=== PATIENT | male | born 1975 | race African-American/Black ===

== ENCOUNTER 2017-10-01 12:03 | Emergency (ER) | payer MEDICAID ==
[~2017-10-01] VITALS: Ht 175.3 cm; Wt 96.6 kg
[2017-10-01 12:25] VITALS: BP 113/84
--- NOTE | 2017-10-01 12:29 | NUR ---
PT AMBULATES TO BED 6
--- NOTE | 2017-10-01 12:40 | NUR ---
PATIENT PRESENTS TO ED WITH RASH AND PRURITUS . PT STATES . DENIES N/V/D; SKIN IS PINK/WARM/DRY; AAOX4 WITH EVEN AND STEADY GAIT; LUNGS CLEAR BL; HR EVEN AND REGULAR; PT DENIES ANY FEVER, CP, SOB, OR COUGH AT THIS TIME; PATIENT STATES PAIN OF 0/10 AT THIS TIME; VSS; PATIENT POSITIONED FOR COMFORT; HOB ELEVATED; BEDRAILS UP X2; BED DOWN. ER MD MADE AWARE OF PT STATUS.
[2017-10-01] MEDS ORDERED: diphenhydrAMINE 50 MG/ML VIAL IM ONE (12:55)
[2017-10-01] MEDS ORDERED: DEXAMETHASONE 10 MG/ML VIAL IM ONE (12:55)
--- NOTE | 2017-10-01 13:41 | NUR ---
Patient discharged with v/s stable. Written and verbal after care instructions given and explained. Patient alert, oriented and verbalized understanding of instructions. Ambulatory with steady gait. All questions addressed prior to discharge. ID band removed. Patient advised to follow up with PMD. Rx of ATARAX AND PREDNISONE given. Patient educated on indication of medication including possible reaction and side effects. Opportunity to ask questions provided and answered.
[2017-10-01 13:43] VITALS: BP 110/80
== END 2017-10-01 13:41 | disposition home or self-care (01) ==
LOC: MED 12:03
DX: S60.562A Insect bite (nonvenomous) of left hand, initial encounter (principal); S40.261A Insect bite (nonvenomous) of right shoulder, initial encounter; S30.861A Insect bite (nonvenomous) of abdominal wall, initial encounter; S10.96XA Insect bite of unspecified part of neck, initial encounter; S00.462A Insect bite (nonvenomous) of left ear, initial encounter; T78.40XA Allergy, unspecified, initial encounter; L50.9 Urticaria, unspecified; W57.XXXA Bitten or stung by nonvenomous insect and other nonvenomous arthropods, initial encounter; Y93.89 Activity, other specified; Y92.89 Other specified places as the place of occurrence of the external cause; Y99.8 Other external cause status
CPT/HCPCS: 96372; 99284; J1100; J1200

== ENCOUNTER 2018-07-05 13:14 | Emergency (ER) | payer MEDICAID ==
[~2018-07-05] VITALS: Ht 175.3 cm; Wt 107.2 kg
[2018-07-05 13:16] VITALS: BP 147/90
--- NOTE | 2018-07-05 13:23 | NUR ---
PT AMB TO BED 8
--- NOTE | 2018-07-05 13:37 | NUR ---
PATIENT PRESENTS TO ED WITH C/O PRODUCTIVE COUGH AND SORE THROAT FOR APPROX 3 WEEKS. PT DENIES NAUSEA, VOMITING AND FEVERS. LUNGS CLEAR BL. PATIENT STATES THROAT PAIN OF 10/10 AT THIS TIME THAT GETS WORSE WHEN COUGHING. VSS. PATIENT POSITIONED FOR COMFORT. HOB ELEVATED, BEDRAIL UP X1. BED DOWN. PENDING ERMD EVALUATION.
--- NOTE | 2018-07-05 14:00 | NUR ---
PT TRANSPORTED TO RADIOLOGY VIA WHEELCHAIL.
--- NOTE | 2018-07-05 14:08 | NUR ---
PT IS BACK FROM RADIOLOGY. BEING EVALUATED BY DR. WAGNER AT BEDSIDE.
[2018-07-05 15:17] VITALS: BP 138/82
--- NOTE | 2018-07-05 15:17 | NUR ---
Patient discharged with v/s stable. Written and verbal after care instructions given and explained. Patient alert, oriented and verbalized understanding of instructions. Ambulatory with steady gait. All questions addressed prior to discharge. ID band removed. Patient advised to follow up with PMD. Rx of ZITHROMAX 250MG given. Patient educated on indication of medication including possible reaction and side effects. Opportunity to ask questions provided and answered.
== END 2018-07-05 15:17 | disposition home or self-care (01) ==
LOC: MED 13:14
DX: R05 Cough (principal); R06.02 Shortness of breath; R07.0 Pain in throat; R61 Generalized hyperhidrosis; Z88.5 Allergy status to narcotic agent
CPT/HCPCS: 71046; 99283

== ENCOUNTER 2018-08-04 15:42 | Emergency (ER) | payer MEDICAID ==
[~2018-08-04] VITALS: Ht 175.3 cm; Wt 106.8 kg
--- NOTE | 2018-08-04 15:45 | NUR ---
PATIENT AMBULATED TO BED 11
[2018-08-04 15:46] VITALS: BP 143/94
--- NOTE | 2018-08-04 15:46 | NUR ---
BIB SELF. AAO X4 C/O RT ANKLE AND LT KNEE PAIN X1 DAY. PT REPORTS TWISTING RT ANKLE AND FALLING LANDING ON LT KNEE. PAIN AT 8/10 THAT INCREASES WITH WALKING. PT TREATED WITH NORCO WITH SOME RELIEF. + CMS TO HILDA LEGS, STEADY GAIT. -DEFORMITY, -SWELLING NOTED. ER TO EVALUATE PT.
--- NOTE | 2018-08-04 15:58 | NUR ---
DR SPENCER AT BEDSIDE FOR PT EVALUATION
[2018-08-04] MEDS ORDERED: IBUPROFEN 800 MG TAB PO ONE (16:00)
--- NOTE | 2018-08-04 16:09 | NUR ---
RADIOLOGY AT BEDSIDE.
[2018-08-04 17:03] VITALS: BP 139/88
== END 2018-08-04 17:03 | disposition home or self-care (01) ==
LOC: MED 15:42
DX: S93.401A Sprain of unspecified ligament of right ankle, initial encounter (principal); S80.02XA Contusion of left knee, initial encounter; Z88.6 Allergy status to analgesic agent; W19.XXXA Unspecified fall, initial encounter; Y93.89 Activity, other specified; Y92.89 Other specified places as the place of occurrence of the external cause; Y99.8 Other external cause status
CPT/HCPCS: 73562; 73610; 99283; Q0092

== ENCOUNTER 2018-10-15 04:55 | Emergency (ER) | payer MEDICAID ==
[~2018-10-15] VITALS: Ht 175.3 cm; Wt 108.4 kg
[2018-10-15 05:00] VITALS: BP 147/84
--- NOTE | 2018-10-15 05:00 | NUR ---
PT TAKEN TO BED 8
--- NOTE | 2018-10-15 05:03 | NUR ---
EKG PERFORMED AT BEDSIDE
--- NOTE | 2018-10-15 05:05 | NUR ---
PT CAME TO ER C/O CHEST PAIN X 2 DAYS. PAIN IS IN LEFT STERNAL AREA AND DOES NOT RADIATE. PAIN LEVEL 8/10, CRUSHING PAIN. PER PT CHEST PAIN EXACERBATED WHEN HE BURPS, COUGHS, SITS UP OR MOVES AROUND. VSS. POSITIONED IN HIGH FOWLERS. ALLERGIES: TRAMADOL. NO MED HX. SAFETY MEASURES IN PLACE. ERMD MADE AWARE OF STATUS.
--- NOTE | 2018-10-15 05:15 | NUR ---
PT DENIES DOING ANY STRENUOUS EXERCISE OR HEAVY LIFTING. VSS. WILL CONTINUE TO MONITOR.
--- NOTE | 2018-10-15 05:15 | NUR ---
Curtis allen in EDM - 10/15/18 at 0601 by MEDAgJ PT DENIES DOING ANY STRENUOUS EXERCISE OR HEAVY LIFTING. VSS. WILL CONTINUE TO MONITOR.
--- NOTE | 2018-10-15 05:16 | NUR ---
Dr. Yadav examining patient.
--- NOTE | 2018-10-15 05:34 | NUR ---
X-Ray at bedside.
[2018-10-15 05:48] LABS: BASOPHILS # (AUTO) 0.1 K/uL (0.00-0.22); BASOPHILS % (AUTO) 1.2 % (0.0-2.0); EOSINOPHILS # (AUTO) 0.1 K/uL (0-0.4); EOSINOPHILS % (AUTO) 1.5 % (0.0-4.0); HEMATOCRIT 39.6 % (36-52); HEMOGLOBIN 13.3 g/dL (12.0-18.0); LYMPHOCYTES # (AUTO) 2.4 K/uL (2.0-11.5); LYMPHOCYTES % (AUTO) 42.8 % (20.5-51.1); MEAN CORPUSCULAR HEMOGLOBIN 33 pg (27-31); MEAN CORPUSCULAR HGB CONC 34 g/dL (33-37); MEAN CORPUSCULAR VOLUME 96.9 fL (80-94); MONOCYTES # (AUTO) 0.5 K/uL (0.8-1.0); MONOCYTES % (AUTO) 9.5 % (1.7-9.3); NEUTROPHILS # (AUTO) 2.5 K/uL (1.8-7.7); PLATELET COUNT (AUTO) 247 K/uL (140-450); RED BLOOD CELL COUNT(AUTO) 4.09 MIL/uL (4.20-6.10); RED CELL DISTRIBUTION WIDTH 13.4 % (11.6-13.7); WHITE BLOOD COUNT (AUTO) 5.6 K/uL (4.8-10.8)
[2018-10-15] MEDS: ASPIRIN 81 MG TAB.CHEW PO ONE (05:48)
[2018-10-15] MEDS: NACL 0.9% 1,000 ML IV ONE (05:48)
[2018-10-15] MEDS: KETOROLAC 30 MG/ML VIAL IVP ONE (05:49)
[2018-10-15 06:08] LABS: ANION GAP 10.8 (8-16); CARBON DIOXIDE 27.9 mmol/L (21-32); POTASSIUM 3.7 mmol/L (3.5-5.1)
[2018-10-15 06:18] LABS: TOTAL BILIRUBIN 0.3 mg/dL (0.0-1.0)
[2018-10-15 06:19] LABS: ALBUMIN 3.7 g/dL (3.4-5.0)
--- NOTE | 2018-10-15 06:20 | NUR ---
PT EXPRESSES THAT HE FEELS MUCH BETTER. PAIN LEVEL DECREASED TO 5/10.
[2018-10-15 06:40] VITALS: BP 127/76
--- NOTE | 2018-10-15 06:40 | NUR ---
Patient discharged with v/s stable. Written and verbal after care instructions given and explained. EDUCATED PT TO ICE AREA AND REDUCE STRENUOUS EXERCISE. Patient alert, oriented and verbalized understanding of instructions. Carried with steady gait. All questions addressed prior to discharge. ID band removed. Rx of ROBAXIN AND MOTRIN WAS given. Patient educated on indication of medication including possible reaction and side effects. Opportunity to ask questions provided and answered.
--- NOTE | 2018-10-16 08:49 | NUR ---
Late entry. Confirmed with RN that 1000ml 0.9 NS IV completed at 0640.
== END 2018-10-15 06:40 | disposition home or self-care (01) ==
LOC: MED 04:55
DX: R07.89 Other chest pain (principal); M25.512 Pain in left shoulder; M54.9 Dorsalgia, unspecified; Z88.6 Allergy status to analgesic agent
CPT/HCPCS: 36415; 71045; 80053; 84484; 85025; 93005; 96372; 99284; J1885; J7030

== ENCOUNTER 2018-12-24 21:04 | Emergency (ER) | payer MEDICAID ==
[~2018-12-24] VITALS: Ht 175.3 cm; Wt 104.3 kg
[2018-12-24 21:13] VITALS: BP 128/78
[2018-12-24] MEDS ORDERED: ceFAZolin 1,000 MG VIAL IM ONE (22:25)
[2018-12-24] MEDS ORDERED: hydrOXYzine 50 MG/ML VIAL IM ONE (22:25)
[2018-12-24] MEDS ORDERED: WATER STERILE 10 ML MC ONE (22:32)
[2018-12-25 00:05] VITALS: BP 126/80
== END 2018-12-25 00:05 | disposition home or self-care (01) ==
LOC: MED 21:04
DX: L03.114 Cellulitis of left upper limb (principal); Z88.6 Allergy status to analgesic agent
CPT/HCPCS: 96372; 99283; J0690; J3410

== ENCOUNTER 2019-03-21 21:54 | Emergency (ER) | payer MEDICAID ==
--- NOTE | 2019-03-21 23:20 | NUR ---
PATIENT CALLED THREE TIMES LEFT WITHOUT BEING TRIAGED
== END 2019-03-21 23:20 | disposition left against medical advice (07) ==
LOC: MED 21:54
DX: Z53.21 Procedure and treatment not carried out due to patient leaving prior to being seen by health care provider (principal)

== ENCOUNTER 2019-03-22 07:06 | Emergency (ER) | payer MEDICAID ==
[~2019-03-22] VITALS: Ht 175.3 cm; Wt 107.5 kg
[2019-03-22 07:09] VITALS: BP 134/83
[2019-03-22] MEDS ORDERED: ONDANSETRON 4 MG/2 ML VIAL IVP ONE (08:10)
[2019-03-22] MEDS ORDERED: KETOROLAC 30 MG/ML VIAL IVP ONE (08:10)
[2019-03-22] MEDS ORDERED: NACL 0.9% 1,000 ML IV ONE (08:10)
--- NOTE | 2019-03-22 08:26 | NUR ---
TO XRAY VIA W/C.
--- NOTE | 2019-03-22 08:35 | NUR ---
PT BIB FAMILY C/O COUGH, PHLEGM, SOB, FEVER, CHILLS FOR 5 DAYS. PT DENIES N/V/D; SKIN IS INTACT, PINK/WARM/DRY; AAOX4, PERRL, WITH EVEN AND STEADY GAIT; LUNGS CLEAR BL, BREATHING UNLABORED; HR EVEN AND REGULAR, BL PERIPHERAL PULSES PRESENT; BS ACTIVE X4, NO TENDERNESS TO PALPATION. PT DENIES ANY FEVER, CP, SOB AT THIS TIME; PT STATES 5/10 PAIN AT THIS TIME; VSS; PATIENT POSITIONED FOR COMFORT; HOB ELEVATED; BEDRAILS UP X2; BED DOWN.
[2019-03-22 08:53] LABS: BASOPHILS % (AUTO) 0.8 % (0.0-2.0); EOSINOPHILS % (AUTO) 0.3 % (0.0-4.0); HEMATOCRIT 43.4 % (36-52); HEMOGLOBIN 14.3 g/dL (12.0-18.0); LYMPHOCYTES # (AUTO) 1.7 K/uL (2.0-11.5); LYMPHOCYTES % (AUTO) 47.7 % (20.5-51.1); MEAN CORPUSCULAR HEMOGLOBIN 32 pg (27-31); MEAN CORPUSCULAR HGB CONC 33 g/dL (33-37); MEAN CORPUSCULAR VOLUME 97.9 fL (80-94); MONOCYTES # (AUTO) 0.6 K/uL (0.8-1.0); MONOCYTES % (AUTO) 16.2 % (1.7-9.3); NEUTROPHILS # (AUTO) 1.2 K/uL (1.8-7.7); PLATELET COUNT (AUTO) 218 K/uL (140-450); RED BLOOD CELL COUNT(AUTO) 4.43 MIL/uL (4.20-6.10); WHITE BLOOD COUNT (AUTO) 3.5 K/uL (4.8-10.8)
--- NOTE | 2019-03-22 09:00 | NUR ---
Pt report given to LEXI. Transfer of care at this time.
[2019-03-22 09:15] LABS: ANION GAP 13.5 (8-16); CARBON DIOXIDE 30.3 mmol/L (21-32); CREATININE 1.2 mg/dL (0.7-1.3); POTASSIUM 3.8 mmol/L (3.5-5.1)
[2019-03-22 09:21] LABS: ALBUMIN 3.9 g/dL (3.4-5.0); TOTAL BILIRUBIN 0.6 mg/dL (0.0-1.0)
[2019-03-22 09:55] VITALS: BP 124/79
--- NOTE | 2019-03-22 09:56 | NUR ---
Patient discharged with v/s stable. Written and verbal after care instructions given and explained. Patient alert, oriented and verbalized understanding of instructions. Ambulatory with steady gait. All questions addressed prior to discharge. ID band removed. Patient advised to follow up with PMD. Rx of PROMETHAZINE, TAMIFLU given. Patient educated on indication of medication including possible reaction and side effects. Opportunity to ask questions provided and answered.
--- NOTE | 2019-03-22 09:56 | NUR ---
Note tiffany in EDM - 03/22/19 at 1012 by ALICJA Patient discharged with v/s stable. Written and verbal after care instructions given and explained. Patient alert, oriented and verbalized understanding of instructions. Ambulatory with steady gait. All questions addressed prior to discharge. ID band removed. Patient advised to follow up with PMD. Rx of PROMETHAZINE, AZITHROMYCIN given. Patient educated on indication of medication including possible reaction and side effects. Opportunity to ask questions provided and answered.
[2019-03-22 10:04] LABS: APPEARANCE,URINE CLEAR (CLEAR); BILIRUBIN,URINE NEGATIVE (NEGATIVE); BLOOD, URINE TRACE-I (NEGATIVE); COLOR,URINE YELLOW (YELLOW); LEUKOCYTE ESTERASE ,URINE NEGATIVE (NEGATIVE); NITRITE, URINE NEGATIVE (NEGATIVE); UGLUCOSE NEGATIVE (NEGATIVE)
[2019-03-22 10:16] LABS: RBC,URINE 0-5 /HPF (0-5); WBC,URINE 0-5 /HPF (0-5)
--- NOTE | 2019-03-24 08:49 | NUR ---
Late entry. COnfirmed with RN that 0.9 NS IV completed at 0950
== END 2019-03-22 09:56 | disposition home or self-care (01) ==
LOC: MED 07:06
DX: J10.1 Influenza due to other identified influenza virus with other respiratory manifestations (principal); J45.909 Unspecified asthma, uncomplicated; Z88.6 Allergy status to analgesic agent
CPT/HCPCS: 36415; 71046; 80053; 81001; 85025; 87804; 96374; 96375; 99284; J1885; J2405; J7030

== ENCOUNTER 2020-10-14 15:05 | Emergency (ER) | payer MEDICAID ==
[~2020-10-14] VITALS: Ht 175.3 cm; Wt 114.9 kg
[2020-10-14 15:20] VITALS: BP 143/92
--- NOTE | 2020-10-14 15:51 | NUR ---
Patient ambulated with steady gait to bed 7.
--- NOTE | 2020-10-14 15:55 | NUR ---
44/M presents to ED with c/o abdominal pain x4 days. Patient states he has had worsening left lower quadrant pain for 4 days with no relief. Reports taking pepto with no relief, states LLQ is tender to touch, states 10/10 cramping pain that is constant. Denies nausea, vomiting, diarrhea, constipation, dysuria or hematuria.
[2020-10-14] MEDS ORDERED: HYDROcodone/APAP 5/325 MG 1 TAB TAB PO ONE (16:45)
[2020-10-14 17:17] LABS: BASOPHILS % (AUTO) 0.6 % (0.0-2.0); EOSINOPHILS # (AUTO) 0.1 K/uL (0-0.4); EOSINOPHILS % (AUTO) 1.5 % (0.0-4.0); HEMOGLOBIN 14.2 g/dL (12.0-18.0); LYMPHOCYTES # (AUTO) 3.4 K/uL (2.0-11.5); LYMPHOCYTES % (AUTO) 47.6 % (20.5-51.1); MEAN CORPUSCULAR HEMOGLOBIN 33 pg (27-31); MEAN CORPUSCULAR HGB CONC 33 g/dL (33-37); MEAN CORPUSCULAR VOLUME 98.4 fL (80-94); MONOCYTES # (AUTO) 0.7 K/uL (0.8-1.0); MONOCYTES % (AUTO) 9.9 % (1.7-9.3); NEUTROPHILS # (AUTO) 2.9 K/uL (1.8-7.7); NEUTROPHILS % (AUTO) 40.4 % (42.2-75.2); PLATELET COUNT (AUTO) 319 K/uL (140-450); RED BLOOD CELL COUNT(AUTO) 4.37 MIL/uL (4.20-6.10); RED CELL DISTRIBUTION WIDTH 13.4 % (11.6-13.7); WHITE BLOOD COUNT (AUTO) 7.2 K/uL (4.8-10.8)
[2020-10-14 17:27] LABS: APPEARANCE,URINE CLEAR (CLEAR); BILIRUBIN,URINE NEGATIVE (NEGATIVE); BLOOD, URINE TRACE-I (NEGATIVE); COLOR,URINE YELLOW (YELLOW); LEUKOCYTE ESTERASE ,URINE NEGATIVE (NEGATIVE); NITRITE, URINE NEGATIVE (NEGATIVE); PH,URINE 5.5 (5.0-9.0); UGLUCOSE NEGATIVE (NEGATIVE)
[2020-10-14 17:47] LABS: RBC,URINE NONE SEEN /HPF (0-5); WBC,URINE NONE SEEN /HPF (0-5)
[2020-10-14 18:05] LABS: ALBUMIN 3.6 g/dL (3.4-5.0); ANION GAP 14.6 (8-16); CARBON DIOXIDE 27.5 mmol/L (21-32); CREATININE 1.2 mg/dL (0.6-1.3); POTASSIUM 4.1 mmol/L (3.5-5.1); TOTAL BILIRUBIN 0.4 mg/dL (0.0-1.0)
[2020-10-14] MEDS ORDERED: METR500T1 PO ×2 (18:24→18:35)
[2020-10-14] MEDS ORDERED: ACET-8386 PO ×2 (18:24→18:35)
[2020-10-14] MEDS ORDERED: CIPR500T4 PO ×2 (18:24→18:35)
[2020-10-14 18:35] VITALS: BP 135/86
--- NOTE | 2020-10-14 18:35 | NUR ---
Patient discharged with v/s stable. Written and verbal after care instructions given and explained. Patient alert, oriented and verbalized understanding of instructions. Ambulatory with steady gait. All questions addressed prior to discharge. ID band removed. Patient advised to follow up with PMD. Rx of [place], Cipro, Flagyl given. Patient educated on indication of medication including possible reaction and side effects. Opportunity to ask questions provided and answered.
== END 2020-10-14 18:35 | disposition home or self-care (01) ==
LOC: MED 15:05
DX: K57.92 Diverticulitis of intestine, part unspecified, without perforation or abscess without bleeding (principal); J45.909 Unspecified asthma, uncomplicated; F12.90 Cannabis use, unspecified, uncomplicated; Z88.5 Allergy status to narcotic agent; Z79.899 Other long term (current) drug therapy
CPT/HCPCS: 36415; 80053; 81001; 83690; 85025; 99284

== ENCOUNTER 2020-10-20 15:48 | Emergency (ER) | payer MEDICAID ==
[~2020-10-20] VITALS: Ht 175.3 cm; Wt 114.8 kg
[~2020-10-20 15:48] MED LIST: ACET-8386 PO; CIPR500T4 PO; METR500T1 PO
[2020-10-20 15:56] VITALS: BP 151/79
--- NOTE | 2020-10-20 16:10 | NUR ---
Pt taken to bed 11.
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
--- NOTE | 2020-10-20 16:21 | NUR ---
DR GALLOWAY AT BEDSIDE EVALUATING PT
[2020-10-20] MEDS ORDERED: AMOX-1000 PO (16:50)
[2020-10-20] MEDS ORDERED: FAMO-90 PO (16:50)
[2020-10-20] MEDS ORDERED: ACET-10509 PO (16:51)
[2020-10-20 16:54] LABS: BASOPHILS % (AUTO) 0.6 % (0.0-2.0); EOSINOPHILS # (AUTO) 0.1 K/uL (0-0.4); EOSINOPHILS % (AUTO) 1.3 % (0.0-4.0); HEMATOCRIT 41.4 % (36-52); HEMOGLOBIN 13.8 g/dL (12.0-18.0); LYMPHOCYTES # (AUTO) 2.7 K/uL (2.0-11.5); MEAN CORPUSCULAR HEMOGLOBIN 33 pg (27-31); MEAN CORPUSCULAR HGB CONC 33 g/dL (33-37); MEAN CORPUSCULAR VOLUME 98.4 fL (80-94); MONOCYTES # (AUTO) 0.7 K/uL (0.8-1.0); MONOCYTES % (AUTO) 9.9 % (1.7-9.3); NEUTROPHILS # (AUTO) 3.7 K/uL (1.8-7.7); NEUTROPHILS % (AUTO) 51.2 % (42.2-75.2); PLATELET COUNT (AUTO) 345 K/uL (140-450); RED CELL DISTRIBUTION WIDTH 13.5 % (11.6-13.7); WHITE BLOOD COUNT (AUTO) 7.3 K/uL (4.8-10.8)
[2020-10-20 17:11] LABS: ALBUMIN 3.6 g/dL (3.4-5.0); ANION GAP 12.2 (8-16); CARBON DIOXIDE 27.8 mmol/L (21-32); CREATININE 1.1 mg/dL (0.6-1.3); TOTAL BILIRUBIN 0.4 mg/dL (0.0-1.0)
--- NOTE | 2020-10-20 17:20 | NUR ---
Patient discharged with v/s stable. Written and verbal after care instructions given and explained. Patient alert, oriented and verbalized understanding of instructions. Ambulatory with steady gait. All questions addressed prior to discharge. ID band removed. Patient advised to follow up with PMD. Rx of EXTRA STRENGTH TYLENOL,AUGMENTIN, PEPCID given. Patient educated on indication of medication including possible reaction and side effects. Opportunity to ask questions provided and answered.
== END 2020-10-20 17:20 | disposition home or self-care (01) ==
LOC: MED 15:48
DX: K57.92 Diverticulitis of intestine, part unspecified, without perforation or abscess without bleeding (principal); Z91.19 Patient's noncompliance with other medical treatment and regimen; J45.909 Unspecified asthma, uncomplicated; Z88.5 Allergy status to narcotic agent; Z79.899 Other long term (current) drug therapy; Z98.890 Other specified postprocedural states
CPT/HCPCS: 36415; 80053; 83690; 85025; 99283